=== PATIENT | female | born 1970 | race Caucasian/White ===

== ENCOUNTER → 2024-02-10 19:42 | Outpatient (REF) | payer BC, SELFPAY | LOC: WDC 19:42 | PROVIDERS: ATTENDING PHYSICIAN Physician Assistant Medical | DX: Z12.31 Encounter for screening mammogram for malignant neoplasm of breast (principal) | CPT/HCPCS: 77063; 77067 ==

== ENCOUNTER → 2025-02-13 19:11 | Outpatient (REF) | payer BC, SELFPAY | LOC: WDC 19:11 | PROVIDERS: ATTENDING PHYSICIAN Obstetrics & Gynecology; FAMILY PHYSICIAN Family Medicine | DX: Z12.31 Encounter for screening mammogram for malignant neoplasm of breast (principal) | CPT/HCPCS: 77063; 77067 ==

== ENCOUNTER → 2025-03-01 17:46 | Outpatient (REF) | payer BC, SELFPAY | LOC: RAD 17:46 | PROVIDERS: ATTENDING PHYSICIAN Physician Assistant Medical | DX: R10.13 Epigastric pain (principal) | CPT/HCPCS: 76700 ==

== ENCOUNTER → 2025-03-15 12:46 | Outpatient (REF) | payer BC, SELFPAY | LOC: RAD 12:46 | PROVIDERS: ATTENDING PHYSICIAN Physician Assistant Medical | DX: K76.9 Liver disease, unspecified (principal) | CPT/HCPCS: 74160; Q9967 ==

== ENCOUNTER 2025-07-24 06:21 | Day surgery (SDC) | payer BC, SELFPAY | END 2025-07-24 13:48 | disposition home or self-care (01) | LOC: GI 06:21 | PROVIDERS: ATTENDING PHYSICIAN Internal Medicine Gastroenterology; FAMILY PHYSICIAN Physician Assistant Medical | DX: R12 Heartburn (principal); R13.10 Dysphagia, unspecified; K22.89 Other specified disease of esophagus; K44.9 Diaphragmatic hernia without obstruction or gangrene; K31.89 Other diseases of stomach and duodenum | CPT/HCPCS: 43239; 88305; 88342 ==